=== PATIENT | male | born 1945 | race Two or more races ===

== ENCOUNTER 2023-10-06 21:21 | Emergency (ER) | payer MEDICARE, MEDICAID ==
[~2023-10-06] VITALS: Ht 167.6 cm; Wt 90.0 kg
[2023-10-06 22:24] LABS: Basophils # (auto) 0.1 10 ^3/uL (0-0.2); Basophils % (auto) 0.8 % (0.0-2.0); Eosinophils # (auto) 0.2 10 ^3/uL (0-0.8); Hematocrit 44.5 % (41.0-53.0); Hemoglobin 14.9 g/dL (13.5-17.5); Lymphocytes % (auto) 36.7 % (10.0-50.0); Mean Corpuscular Hemoglobin 27.4 pg (28.0-32.0); Mean Corpuscular Hgb Conc. 33.4 g/dL (32.0-36.0); Monocytes # (auto) 0.8 10 ^3/uL (0-1.3); Monocytes % (auto) 9.4 % (0.0-12.0); Neutrophils # (auto) 4.2 10 ^3/uL (1.6-8.6); Neutrophils % (auto) 51.1 % (37.0-80.0); Red Blood Cells 5.43 10^6/uL (4.5-5.90); Red Cell Distribution Width 14.3 % (11.8-14.3); White Blood Cell 8.3 10^3/uL (4.4-10.8)
[2023-10-06 22:41] LABS: Alanine Aminotransferase 20 U/L (7-40); Albumin 4.3 g/dL (3.2-4.8); Alkaline Phosphatase 97 U/L (46-116); Anion Gap 9 (5-15); Aspartate Aminotransferase 16 U/L (13-40); BUN/Creatinine Ratio 12.8 (10.0-20.0); Bilirubin, Total 0.2 mg/dL (0.2-1.0); Blood Urea Nitrogen 18 mg/dL (9-23); Calcium 9.7 mg/dL (8.5-10.1); Carbon Dioxide 24 mmol/L (20-30); Chloride 106 mmol/L (98-107); Glucose 307 mg/dL (74-106); Potassium 3.7 mmol/L (3.5-5.1); Sodium 139 mmol/L (136-145); Total Protein 7.5 g/dL (5.7-8.2)
[2023-10-06 22:44] LABS: INR 1.02 (0.9-1.15); Partial Thromboplastin Time 27.9 SEC (24.5-34.5); Prothrombin Time 10.7 sec (9.3-11.8)
[2023-10-06 22:45] VITALS: PULSE 69; RESP 18; O2SAT 96
[2023-10-07 02:30] VITALS: BP 143/104; PULSE 64; RESP 17; O2SAT 94
== END 2023-10-07 02:37 | disposition home or self-care (01) ==
LOC: ER 21:21 → EDBD 21:21 → ER 10-07 02:37
DX: R07.9 Chest pain, unspecified (principal); R06.00 Dyspnea, unspecified; E11.9 Type 2 diabetes mellitus without complications; I10 Essential (primary) hypertension
CPT/HCPCS: 36415; 71045; 80053; 83880; 84484; 85025; 85610; 85730; 93005

== ENCOUNTER 2024-06-19 18:41 | Emergency (ER) | payer MEDICARE, MEDICAID ==
[~2024-06-19] VITALS: Ht 175.3 cm; Wt 79.0 kg
[2024-06-19 18:53] VITALS: BP 170/80; PULSE 84; RESP 20; O2SAT 95
[2024-06-19] MEDS ORDERED: LORazepam 2MG/ML-1ML VIAL IV ONE (19:00)
[2024-06-19] MEDS ORDERED: KETOROLAC TROMETH 30 MG/ML 1ML VIAL IV ONE (19:00)
[2024-06-19] MEDS ORDERED: fentaNYL CITRATE 100 MCG/2 ML VL IV ONE (19:00)
[2024-06-19] MEDS ORDERED: HYDROcodone-ACET 10/325MG TAB PO ONE (19:45)
[2024-06-19] MEDS ORDERED: LORazepam 0.5 MG TAB PO ONE (19:45)
== END 2024-06-19 23:12 | disposition left against medical advice (07) ==
LOC: ER 18:41 → EDBD 18:41 → ER 19:28
DX: S33.5XXA Sprain of ligaments of lumbar spine, initial encounter (principal); S13.9XXA Sprain of joints and ligaments of unspecified parts of neck, initial encounter; S20.219A Contusion of unspecified front wall of thorax, initial encounter; E11.9 Type 2 diabetes mellitus without complications; I10 Essential (primary) hypertension; V89.2XXA Person injured in unspecified motor-vehicle accident, traffic, initial encounter; Y93.89 Activity, other specified; Y92.89 Other specified places as the place of occurrence of the external cause; Y99.8 Other external cause status